=== PATIENT | female | born 1990 | race Caucasian/White ===

== ENCOUNTER → 2017-01-19 | Outpatient (CLI) | payer MEDICAID ==
[~2017-01-19] MED LIST: /MOM400 PO; DOCU10ELUD PO; FERR325T3 PO; IBUP60TA PO; IBUP80TA PO; LANOOIL2 XX; PERC5TAB6 PO; PERCOCET PO; PNV-CAP5 PO; VITAD1000T FT
--- NOTE | 2017-01-20 08:09 | REP ---
Obstetric sonography: First trimester study. History: Supervision of . Findings: Scanning demonstrates a viable single intrauterine gestation in a free-floating lie. The embryonic pole measures 22 mm in crown-rump length. This corresponds to a gestational age estimate of 8 weeks 6 days. heart rate is recorded at 160 beats per minute. No subchorionic hemorrhage is identified. There is a 14 mm cyst in the right ovary consistent with corpus luteum. No complication is identified. Impression: Viable single intrauterine gestation at 8 weeks 6 days by crown-rump length. BINA by sonography August 25, 2017. Signed by Alejandro Belcher MD 01/20/2017 01:37 P
== END ==
LOC: M RAD 17:07
PROVIDERS: ATTEND Registered Nurse
DX: Z32.01 Encounter for pregnancy test, result positive (principal); Z3A.08 8 weeks gestation of pregnancy